=== PATIENT | female | born 1990 | race African-American/Black ===

== ENCOUNTER 2024-03-24 13:30 | Emergency (ER) | payer OTHER ==
[~2024-03-24] VITALS: Ht 160 cm; Wt 64.2 kg
[2024-03-24] MEDS: IBUPROFEN 600MG TAB PO ONE (21:20)
[2024-03-24] MEDS: methocarbamoL 500 MG TAB PO ONE (22:04)
[2024-03-24] MEDS: predniSONE 20 MG TAB PO ONE (22:05)
[2024-03-24] MEDS: ACETAMINOPHEN 500 MG TAB PO ONE (22:05)
[2024-03-24 22:50] VITALS: BP 110/71; TEMP 97.5; O2SAT 100
[2024-03-24] MEDS ORDERED: IBUP-1022 PO (22:59)
[2024-03-24] MEDS ORDERED: METH-1164 PO (22:59)
[2024-03-24] MEDS ORDERED: PRED20TA PO (22:59)
== END 2024-03-24 23:09 | disposition home or self-care (01) ==
LOC: M ED 13:30
DX: S13.4XXA Sprain of ligaments of cervical spine, initial encounter (principal); X50.3XXA Overexertion from repetitive movements, initial encounter; Y92.9 Unspecified place or not applicable; Y93.89 Activity, other specified; Y99.1 Military activity
CPT/HCPCS: 72125; 99283; J7512

== ENCOUNTER 2024-06-16 07:02 | Emergency (ER) | payer OTHER ==
[~2024-06-16] VITALS: Ht 160 cm; Wt 60.0 kg
[~2024-06-16 07:02] MED LIST: IBUP-1022 PO; METH-1164 PO; PRED20TA PO
[2024-06-16 08:39] LABS: BASO # 0.1 10^3/uL (0.0-0.2); BASO % 0.7 % (0.0-1.0); EOS # 0.2 10^3/uL (0.0-0.5); EOS % 3.2 % (0.0-3.0); HEMATOCRIT 39.2 % (36.0-47.0); HEMOGLOBIN 12.3 g/dl (12.0-15.5); LYMPH # 1.5 10^3/uL (1.5-5.0); LYMPH % 20.7 % (24.0-44.0); MEAN CORPUSCULAR HEMOGLOBIN 26.6 pg (27.0-33.0); MEAN CORPUSCULAR HGB CONC 31.4 g/dl (32.0-36.5); MEAN CORPUSCULAR VOLUME 84.8 fl (80.0-96.0); MONO # 0.5 10^3/uL (0.0-0.8); MONO % 6.3 % (2.0-8.0); NEUTROPHILS % 68.8 % (36.0-66.0); PLATELET COUNT, AUTOMATED 341 10^3/uL (150-450); RED BLOOD COUNT 4.62 10^6/uL (4.00-5.40); WHITE BLOOD COUNT 7.2 10^3/uL (4.0-10.0)
[2024-06-16 09:01] LABS: LIPASE 34 U/L (12-53)
[2024-06-16 09:03] LABS: ALBUMIN 4.2 G/DL (3.2-5.2); ALKALINE PHOSPHATASE 57 U/L (46-116); ALT/SGPT 20 U/L (7.0-40); AST/SGOT 14 U/L (<34); BILIRUBIN,DIRECT 0.1 MG/DL (<0.4); BILIRUBIN,TOTAL 0.4 MG/DL (0.3-1.2); TOTAL PROTEIN 7.6 G/DL (5.7-8.2)
[2024-06-16 09:08] LABS: HCG, SERUM QUALITATIVE NEGATIVE (NEGATIVE)
[2024-06-16] MEDS ORDERED: ISOVUE-370 76% 100ML VIAL As Ordered ONE (09:14)
[2024-06-16 10:24] LABS: GC DNA AMPLIFICATION NEGATIVE (NEGATIVE)
[2024-06-16 10:27] VITALS: BP 107/61; TEMP 97.3; O2SAT 100
[2024-06-16 11:18] LABS: Trichomonas vaginalis (AMP) NOT DETECTED (NEGATIVE)
== END 2024-06-16 10:35 | disposition home or self-care (01) ==
LOC: M ED 07:02
DX: R10.31 Right lower quadrant pain (principal)
CPT/HCPCS: 74177; 80047; 80076; 81001; 83690; 84703; 85025; 87661; 87810; 87850; 99284; Q9967